=== PATIENT | male | born 1945 | race Caucasian/White ===

== ENCOUNTER 2018-08-06 08:11 | Observation (INO) | payer MEDICARE ==
[~2018-08-06] VITALS: Ht 172.7 cm; Wt 80.8 kg
[2018-08-06] MEDS ORDERED: METH4TAB10 (08:32)
[2018-08-06] MEDS ORDERED: PRAV20TA3 (08:32)
[2018-08-06] MEDS ORDERED: ONDA4TAB11 (08:32)
[2018-08-06 08:52] LABS: BASOPHILS % (AUTO) 0 % (0-10); EOSINOPHILS % (AUTO) 0 % (0-10); HEMATOCRIT 50 % (40-54); HEMOGLOBIN 17.3 G/DL (13.3-17.7); LYMPHOCYTES # (AUTO) 0.5 X 10^3 (1.0-4.0); LYMPHOCYTES % (AUTO) 8 % (12-44); MEAN CORPUSCULAR HEMOGLOBIN 30 PG (25-34); MEAN CORPUSCULAR HGB CONC 34 G/DL (32-36); MEAN CORPUSCULAR VOLUME 86 FL (80-99); MEAN PLATELET VOLUME 10.5 FL (7.4-10.4); MONOCYTES # (AUTO) 0.8 X 10^3 (0.0-1.0); MONOCYTES % (AUTO) 12 % (0-12); NEUTROPHILS # (AUTO) 5.4 X 10^3 (1.8-7.8); NEUTROPHILS % (AUTO) 80 % (42-75); PLATELET COUNT 177 10^3/uL (130-400); RED CELL DISTRIBUTION WIDTH 14.6 % (10.0-14.5); WHITE BLOOD COUNT 6.7 10^3/uL (4.3-11.0)
[2018-08-06 09:08] LABS: PROTHROMBIN TIME PATIENT 13.1 SEC (12.2-14.7)
[2018-08-06] MEDS ORDERED: NS IV 1000 ML 1,000 ML IV ONE ×2 (09:08→09:25)
[2018-08-06] MEDS ORDERED: ONDANSETRON 4 MG/2 ML (SDV) Z0FRAN IVP ONE (09:15)
[2018-08-06 09:23] LABS: ALBUMIN 4.2 GM/DL (3.2-4.5); CALCIUM 9.5 MG/DL (8.5-10.1); CREATININE SERUM 1.48 MG/DL (0.60-1.30); MAGNESIUM 2.3 MG/DL (1.8-2.4); POTASSIUM 4.1 MMOL/L (3.6-5.0); TOTAL PROTEIN 7.9 GM/DL (6.4-8.2)
--- NOTE | 2018-08-06 09:48 | Diagnostic Imaging Report ---
PROCEDURE: CT abdomen and pelvis without contrast. TECHNIQUE: Multiple contiguous axial images were obtained through the abdomen and pelvis without the use of intravenous contrast. INDICATION: Vomiting and diarrhea for 3 days The liver is normal. There are several gallstones in the dependent portion of the gallbladder. No gallbladder wall edema is evident. The bile ducts are not dilated. The spleen, pancreas and adrenals are normal. The kidneys, ureters and bladder are normal. There are multiple air and fluid-filled loops of dilated small bowel. The distal small bowel is not dilated and the changes are consistent with partial small bowel obstruction. An obstructing lesion is not evident at this time. There is some air in a nondistended colon with scattered diverticula present. There is no free intraperitoneal air or fluid. IMPRESSION: Small bowel obstruction. Dictated by: Dictated on workstation # [id number]
--- NOTE | 2018-08-06 10:20 | NUR ---
RESTING IN BED WITH EYES CLOSED. STATES THE ZOFRAN HELPED.
--- NOTE | 2018-08-06 10:33 | ED GI ---
General Chief Complaint: Abdominal/GI Problems Stated Complaint: N/V/D Nursing Triage Note: ARRIVED VIA AMB WITH COMPLAINTS OF N/V/D SINCE . WAS SEEN AT URGENT CARE IN YESTERDAY. GIVEN FLUIDS AND ZOFRAN BUT ZOFRAN IS NOT HELPING. PT STATES HIS DIARRHEA IS BLACK. Sepsis Screen: No Definite Risk Source of Information: Patient Exam Limitations: No Limitations History of Present Illness Date Seen by Provider: Aug 06, 2018 Time Seen by Provider: 08:17 Initial Comments Patient presents to the emergency room with generalized abdominal discomfort, nausea, vomiting, and diarrhea since , August 03. He states his stools have been dark in color, suspicious for blood. He was seen at an urgent care clinic in [place] yesterday and received IV fluids and Zofran. His last dose of Zofran was a 02:00. He does not believe it has been effective. He feels bloated and feels his abdomen is distended. He had a fever early in the illness but has no fever now. He reports a colonoscopy was done about [address] Mendoza in [place]. To the best of his knowledge that study was normal. Allergies and Home Medications Allergies Coded Allergies: No Known Drug Allergies (Unverified , 08/06/18) Patient Home Medication List Home Medication List Reviewed: Yes Review of Systems Review of Systems Constitutional: see HPI EENTM: No Symptoms Reported Respiratory: No Symptoms Reported Cardiovascular: No Symptoms Reported Gastrointestinal: See HPI Genitourinary: No Symptoms Reported Musculoskeletal: no symptoms reported Skin: no symptoms reported Psychiatric/Neurological: No Symptoms Reported Endocrine: No Symptoms Reported Hematologic/Lymphatic: See HPI Past Meaeidu-Freqqm-Esinhw Hx Past Med/Social Hx: Reviewed and Corrections made Patient Social History Alcohol Use: Denies Use Recreational Drug Use: No Smoking Status: Former Smoker Recent Foreign Travel: No Contact w/Someone Who Travel: No Recent Infectious Disease Expo: No Recent Hopitalizations: No Past Medical History Surgeries: Yes (HERNIA) Abdominal, Eye Surgery, Joint Replacement, Orthopedic, Prostatectomy Respiratory: No Cardiac: Yes High Cholesterol Neurological: No Genitourinary: Yes Prostate Problems Gastrointestinal: No Musculoskeletal: No Endocrine: No HEENT: No Cancer: No Psychosocial: No Family Medical History Reviewed and Corrections made Cancer (colon) Physical Exam Vital Signs Vital Signs - First Documented 08/06/18 08:18 Temp 97.8 Pulse 87 Resp 16 B/P (MAP) 159/95 (116) Pulse Ox 95 O2 Delivery Room Air Capillary Refill : Less Than 3 Seconds Height/Weight/BMI Height: 5'8.00" Weight: 175lbs. oz. 79.568132vz; BMI Method:Stated General Appearance: WD/WN, no apparent distress HEENT: PERRL/EOMI, normal ENT inspection, other (Oropharynx somewhat dry) Neck: normal inspection Respiratory: lungs clear, normal breath sounds, no respiratory distress, no accessory muscle use Cardiovascular: regular rate, rhythm, no edema, no murmur Gastrointestinal: normal bowel sounds, soft, distended (Mildly), tenderness ( Generalized) Extremities: normal inspection, no pedal edema Neurologic/Psychiatric: formula room worker II-XII nml as tested, no motor/sensory deficits, alert, normal mood/affect, oriented x 3 Skin: normal color, warm/dry Progress/Results/Core Measures Results/Orders Lab Results Laboratory Tests Test 08/06/18 08:40 Range/Units White Blood Count 6.7 4.3-11.0 10^3/uL Red Blood Count 5.86 H 4.35-5.85 10^6/uL Hemoglobin 17.3 13.3-17.7 G/DL Hematocrit 50 40-54 % Mean Corpuscular Volume 86 80-99 FL Mean Corpuscular Hemoglobin 30 25-34 PG Mean Corpuscular Hemoglobin Concent 34 32-36 G/DL Red Cell Distribution Width 14.6 H 10.0-14.5 % Platelet Count 177 130-400 10^3/uL Mean Platelet Volume 10.5 H 7.4-10.4 FL Neutrophils (%) (Auto) 80 H 42-75 % Lymphocytes (%) (Auto) 8 L 12-44 % Monocytes (%) (Auto) 12 0-12 % Eosinophils (%) (Auto) 0 0-10 % Basophils (%) (Auto) 0 0-10 % Neutrophils # (Auto) 5.4 1.8-7.8 X 10^3 Lymphocytes # (Auto) 0.5 L 1.0-4.0 X 10^3 Monocytes # (Auto) 0.8 0.0-1.0 X 10^3 Eosinophils # (Auto) 0.0 0.0-0.3 10^3/uL Basophils # (Auto) 0.0 0.0-0.1 10^3/uL Prothrombin Time 13.1 12.2-14.7 SEC INR Comment 1.0 0.8-1.4 Activated Partial Thromboplast Time 33 24-35 SEC Sodium Level 131 L 135-145 MMOL/L Potassium Level 4.1 3.6-5.0 MMOL/L Chloride Level 98 98-107 MMOL/L Carbon Dioxide Level 18 L 21-32 MMOL/L Anion Gap 15 H 5-14 MMOL/L Blood Urea Nitrogen 43 H 7-18 MG/DL Creatinine 1.48 H 0.60-1.30 MG/DL Estimat Glomerular Filtration Rate 47 BUN/Creatinine Ratio 29 Glucose Level 126 H 70-105 MG/DL Calcium Level 9.5 8.5-10.1 MG/DL Corrected Calcium 9.3 8.5-10.1 MG/DL Magnesium Level 2.3 1.8-2.4 MG/DL Total Bilirubin 1.0 0.1-1.0 MG/DL Aspartate Amino Transf (AST/SGOT) 106 H 5-34 U/L Alanine Aminotransferase (ALT/SGPT) 126 H 0-55 U/L Alkaline Phosphatase 75 40-136 U/L C-Reactive Protein High Sensitivity 14.28 H 0.00-0.50 MG/DL Total Protein 7.9 6.4-8.2 GM/DL Albumin 4.2 3.2-4.5 GM/DL Lipase 11 8-78 U/L Micro Results Microbiology 08/06/18 Fecal Leukocyte Stain - Final, Resulted 08/06/18 C. difficile GDH Antigen & Toxins - Final, Resulted 08/06/18 Stool Culture, Resulted Pending My Orders Orders - BETTY SNELL MD Cbc With Automated Diff (08/06/18 08:17) Comprehensive Metabolic Panel (08/06/18 08:17) Magnesium (08/06/18 08:17) Saline Lock/Iv-Start (08/06/18 08:17) Protime With Inr (08/06/18 08:47) Partial Thromboplastin Time (08/06/18 08:47) Fecal Occult Bedside (08/06/18 08:47) C Difficile Ag + Toxin A/B. (08/06/18 08:52) Stool Culture (08/06/18 08:52) Fecal Wbc (08/06/18 08:52) Lipase (08/06/18 09:07) Ondansetron Injection (Zofran Injectio (08/06/18 09:15) Ns Iv 1000 Ml (Sodium Chloride 0.9%) (08/06/18 09:08) Ns Iv 1000 Ml (Sodium Chloride 0.9%) (08/06/18 09:25) Ct Abdomen/Pelvis Wo (08/06/18 09:28) Hs C Reactive Protein (08/06/18 09:28) Medications Given in ED Vital Signs/I&O 08/06/18 08:18 Temp 97.8 Pulse 87 Resp 16 B/P (MAP) 159/95 (116) Pulse Ox 95 O2 Delivery Room Air Blood Pressure Mean: 116 Fecal Occult: Positive Progress Progress Note : Progress Note Patient was found to have renal insufficiency with elevated creatinine and a BUN. 2 L of IV normal saline were ordered to start in the ER. CT scan was obtained and demonstrated at least a partial small bowel obstruction. Patient did have a stool that was dark red in color and smell of blood. Tested Hemoccult positive. Specimen was sent to lab for cultures and C. difficile testing. Patient's pain was fairly mild throughout his ER stay. Zofran was given for nausea. Case was discussed with Dr. Lima who is agreeable consult and to admission for observation. Patient was admitted to Dr. Sanchez. Diagnostic Imaging Diagonstic Imaging: CT Plain Films/CT/US/NM/MRI: abdomen, pelvis Comments CT abdomen and pelvis viewed by me and report reviewed. See report below: NAME: RADHA MELLO [facility] REC#: [id number] PT STATUS: REG ER : 1945 PHYSICIAN: BETTY SNELL MD ADMIT DATE: 08/06/18/ER Signed Date of Exam:08/06/18 CT ABDOMEN/PELVIS WO PROCEDURE: CT abdomen and pelvis without contrast. TECHNIQUE: Multiple contiguous axial images were obtained through the abdomen and pelvis without the use of intravenous contrast. INDICATION: Vomiting and diarrhea for 3 days The liver is normal. There are several gallstones in the dependent portion of the gallbladder. No gallbladder wall edema is evident. The bile ducts are not dilated. The spleen, pancreas and adrenals are normal. The kidneys, ureters and bladder are normal. There are multiple air and fluid-filled loops of dilated small bowel. The distal small bowel is not dilated and the changes are consistent with partial small bowel obstruction. An obstructing lesion is not evident at this time. There is some air in a nondistended colon with scattered diverticula present. There is no free intraperitoneal air or fluid. IMPRESSION: Small bowel obstruction. Dictated by: Dictated on workstation # [id number] Dict: 08/06/18 0944 Trans: 08/06/1858 [facility] [id number] Interpreted by: MILVIA VILLEGAS MD Electronically signed by: MILVIA VILLEGAS MD 08/06/18 0958 Departure Communication (Admissions) Time/Spoke to Admitting Phy: 10:40 Dr. Sanchez Time/Spoke to Consulting Phy: 10:35 Dr. Lima Impression Primary Impression: Small bowel obstruction Additional Impressions: Rectal bleeding Renal insufficiency Generalized abdominal pain Nausea vomiting and diarrhea Disposition: ADMITTED INPATIENT Condition: Improved Admissions Decision to Admit Reason: Admit from ER (General) Decision to Admit/Date: Aug 06, 2018 Time/Decision to Admit Time: 10:30 Departure-Patient Inst. Referrals: MARIA C GUIDRY MD (PCP) Primary Care Physician BETTY SNELL MD Aug 06, 2018 10:33
--- NOTE | 2018-08-06 11:40 | NUR ---
RADHA MELLO admitted to room 433-1, with an admitting diagnosis of SMALL BOWEL OBSTRUCTION, RENAL INSUFF AND RECTAL [id number], on 08/06/18 from ED via BED, accompanied by STAFF. RADHA MELLO introduced to surroundings, call light, bed controls, phone, TV, temperature control, lights, meal times, smoking policy, visitor policy, side rail policy, bathrooms and showers. Patient Rights given to patient in the handbook. RADHA MELLO verbalizes understanding that [facility] is not responsible for the loss or damage to any personal effects or valuables that are kept in the patients posession during their hospitalization. The following Patient Care Plans were discussed with the PATIENT: Discharge Planning,KNOWLEDGE, PAIN AND ELIMINATION. RADHA MELLO verbalizes understanding of Interdisciplinary Patient Education.
--- NOTE | 2018-08-06 12:09 | History & Physical-Hospitalist ---
History of Present Illness HPI/Chief Complaint Pt is a 73yoCM with a PMH of HLD who presented to the ER due to abdominal pain, nausea, vomiting, and diarrhea. He ate at the [employer] in [place] on 08/03 and then developed nausea, vomiting, and diarrhea. He was seen yesterday at an urgent care in [place] and prescribed Zofran and sent home. Despite that he was still havingt vomiting and unable to keep anything down. Yesterday he started to have darker color emesis and blood in his stool prompting him to seek evaluation in the ER today. CT Abd was done which revealed a partial small bowel obstruction and labs revealed an ZO. He was admitted for further management and surgical consultation. He states he is still having upper epigastric abdominal pain. Source: patient Exam Limitations: no limitations Date Seen 08/06/18 Time Seen by a Provider: 12:04 Attending Physician Annie Sanchez MD PCP Ori Lee MD Referring Physician Date of Admission Aug 06, 2018 at 10:47 Home Medications & Allergies Home Medications Reviewed patient Home Medication Reconciliation performed by pharmacy medication reconciliations electrostatic powder coating technician and/or nursing. Patients Allergies have been reviewed. Allergies Allergies Coded Allergies No Known Drug Allergies (Unverified08/06/18) Past Ekaiqkp-Vgzpqw-Xeykll Hx Past Med/Social Hx: Reviewed Nursing Past Med/Soc Hx Patient Social History Alcohol Use: Denies Use Recreational Drug Use: No Smoking Status: Former Smoker Recent Foreign Travel: No Contact w/other who traveled: No Recent Hopitalizations: No Recent Infectious Disease Expo: No Past Medical History Surgeries: Abdominal (hernia repair), Eye Surgery, Orthopedic Cardiac: High Cholesterol Genitourinary: Prostate Problems Family History Reviewed Nursing Family Hx No Pertinent Family Hx Review of Systems Constitutional: No chills, No fever EENTM: no symptoms reported Respiratory: no symptoms reported Cardiovascular: No chest pain Gastrointestinal: see HPI, abdominal pain, diarrhea, hematemesis, loss of appetite, nausea, vomiting Genitourinary: no symptoms reported Musculoskeletal: no symptoms reported Skin: no symptoms reported Psychiatric/Neurological: No Symptoms Reported Physical Exam Physical Exam Vital Signs Vital Signs - First Documented 08/06/18 08:18 Temp 97.8 Pulse 87 Resp 16 B/P (MAP) 159/95 (116) Pulse Ox 95 O2 Delivery Room Air Capillary Refill : Less Than 3 Seconds Height, Weight, BMI Height: 5'8.00" Weight: 175lbs. oz. 79.966923ek; BMI Method:Stated General Appearance: No Apparent Distress, WD/WN HEENT: PERRL/EOMI; No Scleral Icterus (L), No Scleral Icterus (R) Respiratory: Lungs Clear, No Accessory Muscle Use, No Respiratory Distress Cardiovascular: Regular Rate, Rhythm, No JVD, No Murmur Gastrointestinal: Normal Bowel Sounds, Non Tender, Soft Extremity: No Calf Tenderness, No Pedal Edema Neurologic/Psychiatric: Alert, Oriented x3, No Motor/Sensory Deficits, Normal Mood/Affect Skin: Normal Color, Warm/Dry Results Results/Procedures Labs Laboratory Tests 08/06/18 08:40 Patient resulted labs reviewed. Imaging: Reviewed Imaging Report Imaging Date of Exam: 08/06/18 CT ABDOMEN/PELVIS WO PROCEDURE: CT abdomen and pelvis without contrast. TECHNIQUE: Multiple contiguous axial images were obtained through the abdomen and pelvis without the use of intravenous contrast. INDICATION: Vomiting and diarrhea for 3 days The liver is normal. There are several gallstones in the dependent portion of the gallbladder. No gallbladder wall edema is evident. The bile ducts are not dilated. The spleen, pancreas and adrenals are normal. The kidneys, ureters and bladder are normal. There are multiple air and fluid-filled loops of dilated small bowel. The distal small bowel is not dilated and the changes are consistent with partial small bowel obstruction. An obstructing lesion is not evident at this time. There is some air in a nondistended colon with scattered diverticula present. There is no free intraperitoneal air or fluid. IMPRESSION: Small bowel obstruction. Assessment/Plan Admission Diagnosis SBO Admission Status: Inpatient Order (span 2 midnights) Reason for Inpatient Admission: Needs surgical consultation, has ZO and needs IVF, will take more than two midnights to stabilize for DC Diagnosis/Problems Diagnosis/Problems (1) Small bowel obstruction Status: Acute Assessment & Plan: NPO Surgery consulted appreciate recs Continue IV pain medications (2) Renal insufficiency Status: Acute Assessment & Plan: Creatinine elevated Continue IVF Avoid nephrotoxic drugs as able Likely due to volume loss (3) Rectal bleeding Status: Acute Assessment & Plan: Stool cultures sent Surgery consulted, appreciate recs Has 3 abx fills in the last year per external fill history C diff ordered (4) Nausea vomiting and diarrhea Status: Acute Assessment & Plan: Zofran and phenergan prn MAX,ANNIE M MD Aug 06, 2018 12:09
[2018-08-06] MEDS: D5 1/2 NS W/KCL 20 MEQ/L 1,000 ML IV SCH ×2 (12:42→21:27)
[2018-08-06] MEDS: FAMOTIDINE 20MG/2ML IV (PEPCID) IVP SCH ×2 (12:42→22:43)
[2018-08-06] MEDS ORDERED: fentaNYL INJECTION 100 MCG/2 ML AMP IVP PRN (12:45)
[2018-08-06] MEDS ORDERED: ONDANSETRON 4 MG/2 ML (SDV) Z0FRAN IVP PRN (12:45)
[2018-08-06 12:57] VITALS: BP 113/87
--- NOTE | 2018-08-06 13:12 | CONSULTATION REPORT ---
DATE OF SERVICE: 08/06/2018 ADMITTING PRIMARY CARE PHYSICIAN: Dr. Lee ADMITTING PHYSICIAN: Dr. Sanchez. The patient is a 73-year-old male admitted for persistent nausea, vomiting and dehydration. He states that 3 days ago he developed nausea and vomiting and this was followed by diarrhea. He reported that the vomiting was dark in coloration as well as bilious. He states that his diarrhea was also dark in color. He does not report any red blood per rectum. He states that he has not had any episodes like this before in the past. He also does not report any flu-like symptoms or any sick contacts. Laboratory work was normal; however, he appears to be significantly dehydrated. His hemoglobin is 17.3 with hematocrit of 50. WBC 6.7, BUN 43, creatinine 1.49. Upon examination of his abdomen, it is slightly distended. However, there is no pain or peritoneal signs as well as no hernias. PAST MEDICAL HISTORY: Hypercholesterolemia. PAST SURGICAL HISTORY: Left total hip arthroplasty, left inguinal hernia repair. Laparoscopic cholecystectomy. ALLERGIES: No known drug allergies. MEDICATIONS: Pravastatin daily. SOCIAL HISTORY: Previous smoker, negative alcohol. FAMILY HISTORY: Noncontributory. VITAL SIGNS: Temperature 97.8, blood pressure 159/95, pulse 87, respirations 16, pulse ox 95% on room air. REVIEW OF SYSTEMS: Well-nourished male, currently in no acute distress. He is not experiencing any shortness of breath or difficulty breathing. No chest pain, palpitations, or diaphoresis. Intermittent episodes of nausea, vomiting of bilious as well as dark material with associated diarrhea and mild crampy abdominal pain. He reports the stools have been dark and were heme positive; however, negative for red blood per rectum. No fever, chills. No recent inadvertent weight loss. PHYSICAL EXAMINATION: CHEST: Clear. Good breath sounds bilaterally. HEART: Regular, no murmurs. EXTREMITIES: No lower extremity edema, negative Homans sign. HEENT: No scleral icterus. NECK: No cervical lymphadenopathy. ABDOMEN: Soft, slightly distended. There is mild discomfort in the mid abdominal region; however, no hernias or peritoneal signs. SKIN: Warm, dry. ASSESSMENT AND PLAN: A 73-year-old male with gastroenteritis. At this time, we feel that this is most likely a viral etiology. Based on the characteristics of his emesis as well as stools, there is a potential for acid secretion, hyperacid secretion gastritis and if he continues to have these symptoms, he may benefit from an EGD. He did have a colonoscopy approximately a year and a half ago and states that this was normal. For now, he will be placed on famotidine 20 mg IV b.i.d. Job ID: [id number] DocumentID: [id number] Dictated Date: 08/06/2018 12:37:22 [place] Supervisor Date: 08/06/2018 13:11:53 Dictated By: BENJIE DE LEÓN MD [facility]
[2018-08-06] MEDS ORDERED: ACETAMINOPHEN 500 MG TAB (TYLENOL) PO PRN (15:00)
[2018-08-06] MEDS ORDERED: BENZONATATE 100 MG (TESSALON) CAPSULE PO PRN (15:00)
[2018-08-06] MEDS ORDERED: ANTACID SUSP 30 ML UDC (MYLANTA) PO PRN (15:00)
[2018-08-06] MEDS ORDERED: MILK OF MAGNESIA 400 MG/5 ML 30 ML UDC PO PRN (15:00)
[2018-08-06] MEDS ORDERED: MELATONIN 3 MG TABLET PO PRN (15:00)
[2018-08-06] MEDS ORDERED: PROMETHAZINE INJ 25 MG/ML (PHENERGAN) AMP IVP PRN (15:15)
--- NOTE | 2018-08-06 15:36 | NUR ---
WALKING IN HALLS WITH , SHORTY WELL, VOIDING DARK SHAMIR URINE, LIQUID BROWN STOOL, IV SITE WITHOUT REDNESS OR SWELLING
[2018-08-06 17:12] VITALS: BP 136/75
[2018-08-06 19:56] VITALS: BP 125/73
[2018-08-07] VITALS: BP 120/70
[2018-08-07 04:00] VITALS: BP 104/63
[2018-08-07] MEDS: D5 1/2 NS W/KCL 20 MEQ/L 1,000 ML IV SCH (05:50)
[2018-08-07] MEDS ORDERED: FLU QUADRIvalent (5+ YOA) 2018-2019 (AFLURIA) 0.5 ML IM ONE (07:45)
[2018-08-07 08:00] VITALS: BP 133/76
[2018-08-07] MEDS: FAMOTIDINE 20MG/2ML IV (PEPCID) IVP SCH (08:54)
--- NOTE | 2018-08-07 09:55 | Discharge Summary-Hospitalist ---
HARDEEP DE LEON DO 08/07/18 0955: Diagnosis/Chief Complaint Date of Admission Aug 06, 2018 at 10:47 Date of Discharge Discharge Date: Aug 07, 2018 Admission Diagnosis SBO Discharge Diagnosis (1) Small bowel obstruction Status: Acute Assessment & Plan: NPO Surgery consulted geraldine hernandez Continue IV pain medications (2) Renal insufficiency Status: Acute Assessment & Plan: Creatinine elevated Continue IVF Avoid nephrotoxic drugs as able Likely due to volume loss (3) Rectal bleeding Status: Acute Assessment & Plan: Stool cultures sent Surgery consulted, geraldine hernandez Has 3 abx fills in the last year per external fill history C diff ordered (4) Nausea vomiting and diarrhea Status: Acute Assessment & Plan: Zofran and phenergan prn Discharge Summary Discharge Physical Exam Allergies: Coded Allergies: No Known Drug Allergies (Unverified , 08/06/18) Vitals & I&Os Vital Signs Date Time Temp Pulse Resp B/P (MAP) Pulse Ox O2 Delivery O2 Flow Rate FiO2 08/07/18 13:22 54 16 133/76 95 Room Air 08/07/18 08:00 96.1 General Appearance: No Apparent Distress, WD/WN HEENT: PERRL/EOMI; No Scleral Icterus (L), No Scleral Icterus (R) Respiratory: Lungs Clear, No Accessory Muscle Use, No Respiratory Distress Cardiovascular: Regular Rate, Rhythm, No JVD, No Murmur Gastrointestinal: Normal Bowel Sounds, Non Tender, Soft Extremity: No Calf Tenderness, No Pedal Edema Skin: Normal Color, Warm/Dry Neurologic/Psychiatric: Alert, Oriented x3, No Motor/Sensory Deficits, Normal Mood/Affect Hospital Course Was the Problem List Reviewed?: Yes He did have a small BM today Had endoscopy, EGD and [place] [address] Dr. Lima saw him yesterday and will see him today and likely DC Viral enteritis is what is the diagnosis Will follow up closely with his new PCP Dr. Lee Labs (last 24 hrs) Microbiology 08/06/18 Fecal Leukocyte Stain - Final, Resulted 08/06/18 C. difficile GDH Antigen & Toxins - Final, Resulted 08/06/18 Stool Culture - Preliminary, Resulted Culture In Progress Presumptive Usual [place] Patient resulted labs reviewed. Imaging: Reviewed Imaging Report Discussion & Recommendations Discharge Planning: <30 minutes discharge planning Discharge Home Medications: Active Scripts Active Reported Pravastatin Sodium 20 Mg Tablet Ondansetron Odt (Ondansetron) 4 Mg Tab.rapdis Instructions to patient/family Please see electronic discharge instructions given to patient. Clinical Quality Measures DVT/VTE Risk/Contraindication: Risk Factor Score Per Nursin RFS Level Per Nursing on Admit: 2=Moderate REDD GARCIA MED STUDENT 08/07/18 1056: Diagnosis/Chief Complaint Admission Diagnosis SBO N/V/D Discharge Summary Discharge Physical Exam Allergies: Coded Allergies: No Known Drug Allergies (Unverified , 08/06/18) General Appearance: No Apparent Distress, WD/WN HEENT: PERRL/EOMI, Normal ENT Inspection Respiratory: Lungs Clear, No Accessory Muscle Use, No Respiratory Distress Cardiovascular: Regular Rate, Rhythm, No JVD, No Murmur Gastrointestinal: Normal Bowel Sounds, No Organomegaly, Non Tender, Distended ( mild) Extremity: No Calf Tenderness, No Pedal Edema Skin: Normal Color, Warm/Dry Neurologic/Psychiatric: Alert, Oriented x3, No Motor/Sensory Deficits, Normal Mood/Affect Hospital Course Patient was admitted through the ER on 08/06 for intractable N/V/D and evidence per CT of SBO. He described his stools at that time as black and very loose. He was placed on IVF, IV pain medication, and made NPO, and surgery was consulted. As of this morning his N/V is under control with anti-emetics, he was able to eat clear liquids last night and this morning without pain or nausea. His diarrhea is improved as well (decreased in quantity and no longer black in color ). Dr. Lima with surgery documents that this is likely a viral gastroenteritis resolving with current treatment plan. Patient feels well today and is ready for discharge to home after he is seen by Dr. Lima. Follow up with primary care physician is recommended. HARDEEP DE LEON DO Aug 07, 2018 09:55 REDD GARCIA MED STUDENT Aug 07, 2018 10:56
--- NOTE | 2018-08-07 13:19 | NUR ---
1235 DR DE LEÓN CALLED AND IS OK WITH DISCHARGE.
[2018-08-07 13:22] VITALS: BP 133/76
== END 2018-08-07 13:10 | disposition home or self-care (01) ==
LOC: ER 08:13 → 4TH 10:47
PROVIDERS: ADMIT Family Medicine; ATTEND Family Medicine
DX: K56.609 Unspecified intestinal obstruction, unspecified as to partial versus complete obstruction (principal); K52.9 Noninfective gastroenteritis and colitis, unspecified; N17.9 Acute kidney failure, unspecified; K62.5 Hemorrhage of anus and rectum; E78.5 Hyperlipidemia, unspecified; Z87.891 Personal history of nicotine dependence
CPT/HCPCS: 36415; 74176; 80053; 83690; 83735; 85025; 85610; 85730; 86141; 87015; 87045; 87046; 87324; 87449; 87899; 89055; G0378

== ENCOUNTER → 2020-12-11 | Outpatient (CLI) | payer SELFPAY ==
[~2020-12-11] MED LIST: METH4TAB10; ONDA4TAB11; PRAV20TA3
--- NOTE | 2020-12-12 08:40 | Diagnostic Imaging Report ---
CLINICAL HISTORY: Hyperlipidemia. Family history of heart disease. COMPARISON: None. TECHNIQUE: Non-contrast enhanced EKG-gated axial images were obtained with a coned down field of view to assess for coronary calcium. Post processing of the images was performed on an independent work station. CTDI volume 5.11 mGy DLP 111 mGy*cm FINDINGS: Important Information About Your Scan: The following information is based on an analysis of the coronary arteries only. Calcium deposits do not correspond directly to the percentage of narrowing of the arteries. They do correlated directly to the amount of coronary plaque, and to the risk of future coronary disease. The calcium deposits usually begin to form years before any symptoms develop. Early detection and modification of risk factors, such as smoking and cholesterol intake, can slow the progress of coronary artery disease. A low score suggests a low likelihood of coronary artery disease, but does not exclude the possibility of significant coronary artery narrowing. The results should be discussed with your physician, taking into account other risk factors such as age, gender, family history, diabetes, smoking or high cholesterol levels. Should you ever experience chest pain, difficulty breathing, discomfort radiating into your neck or arm, or discomfort combined with lightheadedness, sweating, fainting or nausea, you should seek prompt medical attention. Calcium Score: Agatston units 0 - 0: No identifiable atherosclerotic plaque 1 - 10: Minimal plaque burden 11 - 100: Mild plaque burden 101 - 400: Moderate plaque burden Greater than 401: Extensive plaque burden. Score Summary: Your total calcium score is 941.5 Agatston units. Ranking Guide: Your score of 941.5 Agatston units places you in the 75th-90th percentile rank. That means out of a group of people with same gender and similar age as yourself 10-25% will have a higher calcium score than you, as reported in literature. CORONARY AJ-130 Left Main artery (LMA) 0 Left Anterior Descending (LAD) 538.5 Left Circumflex (LCX) 190.7 Right Coronary Artery (RCA) 212.3 Total 941.5 Agatston units The visualized portions of the lungs demonstrate no focal nodules or masses. There are no pleural or pericardial effusions. The visualized osseous structures are age appropriate. A small hiatal hernia is present. IMPRESSION: 1. CT coronary calcium score is 941.5 Agatston units, consistent with the 75th to the 90th percentile rank. This corresponds with extensive plaque burden within the coronary arteries. 2. Adoption and maintenance of a healthy lifestyle is recommended for all people. This includes regular appropriate exercise and observance of a proper diet, to ensure balanced nutrition and weight control. 3. Tobacco use should be avoided. 4. Hypercholesterolemia has been linked to coronary atherosclerosis. Ensure strict adherence to NCEP (National Cholesterol Education Panel) cholesterol-lowering guidelines. For primary prevention, these include a target goal for total cholesterol of less than 200 mg/dL, HDL cholesterol of greater than 40 mg/dL, triglycerides of less than 200 mg/dL and LDL cholesterol of less than 100 mg/dL Secondary prevention involves more stringent goals. However, please note that these are general recommendations and as with all such matters, the personal family physician should be consulted regarding recommendations appropriate for the individual. Recommend evaluation and treatment for all the other cardiovascular risk factors. Dictated by: Dictated on workstation # [id number]
== END ==
LOC: RAD FS 08:47
PROVIDERS: ATTEND Family Medicine
DX: E78.5 Hyperlipidemia, unspecified (principal); Z82.49 Family history of ischemic heart disease and other diseases of the circulatory system
CPT/HCPCS: 75571

== ENCOUNTER 2022-04-03 11:57 | Emergency (ER) | payer MEDICARE ==
[~2022-04-03] VITALS: Ht 172.7 cm; Wt 79.4 kg
[2022-04-03 12:05] VITALS: BP 161/89
--- NOTE | 2022-04-03 12:10 | ED Upper Extremity ---
General Chief Complaint: Laceration Stated Complaint: LT MIDDLE FINGER LAC History of Present Illness Date Seen by Provider: Apr 03, 2022 Time Seen by Provider: 12:10 Initial Comments 76-year-old male is here with complaints of left middle finger tip laceration through the nail tip due to a utility knife injury while he was cutting leather. Denies sensory loss patient is able to move his fingers without any issues or complaints. Allergies and Home Medications Allergies Coded Allergies: No Known Drug Allergies (Unverified , 08/06/18) Patient Home Medication List Home Medication List Reviewed: Yes Ondansetron (Ondansetron Odt) 4 Mg Tab.rapdis, (Reported) Entered as Reported by: ALEX BOWERS on 08/06/18 0832 Pravastatin Sodium (Pravastatin Sodium) 20 Mg Tablet, (Reported) Entered as Reported by: ALEX BOWERS on 08/06/18 0832 Review of Systems Constitutional: no symptoms reported EENTM: no symptoms reported Respiratory: no symptoms reported Cardiovascular: no symptoms reported Gastrointestinal: no symptoms reported Genitourinary: no symptoms reported Musculoskeletal: no symptoms reported Skin: see HPI, lesions Psychiatric/Neurological: No Symptoms Reported Past Qwugowh-Qisgdk-Pecnow Hx Seasonal Allergies Seasonal Allergies: No Past Medical History Surgeries: Yes (HERNIA, left hip) Abdominal, Eye Surgery, Joint Replacement, Orthopedic, Prostatectomy Respiratory: No Currently Using CPAP: No Currently Using BIPAP: No Cardiac: Yes High Cholesterol Neurological: No Genitourinary: Yes Prostate Problems Gastrointestinal: No Gastroesophageal Reflux Musculoskeletal: No Arthritis Endocrine: No HEENT: No Loss of Vision: Denies Hearing Impairment: Denies Cancer: No Psychosocial: No Integumentary: No Blood Disorders: No Family Medical History Cardiovascular disease 19 FATHER Neoplasm G8 BROTHER Cancer Physical Exam Vital Signs Vital Signs - First Documented 04/03/22 12:05 Temp 36.0 Pulse 71 Resp 18 B/P (MAP) 161/89 (113) Pulse Ox 96 O2 Delivery Room Air Capillary Refill : Height, Weight, BMI Height: 5'8.00" Weight: 178lbs. 2.0oz. 80.738982ye; 27.1 BMI Method:Stated General Appearance: WD/WN, no apparent distress HEENT: PERRL/EOMI Neck: full range of motion Hand: normal ROM, Left, laceration (curved laceratiobn on tipof finger including tip of nail directed towrd radial side of dorsal finger, 1.25 cm long. NV bundle intact. ROM unrestricted) Procedures/Interventions Wound Location: Upper Extremities Other Wound Location left middle fingertip Wound's Depth, Shape: superficial, sub Q Wound Explored: no foreign body removed Irrigated w/ Saline (ccs): 20 Betadine Prep?: No Anesthesia: 1% Lidocaine Volume Anesthetic (ccs): 7 Suture: Ethlion Suture Size: 4-0, 5-0 Number of Sutures: 3 Sterile Dressing Applied?: Yes Progress/Results/Core Measures Results/Orders My Orders Orders - LINSEY ROWAN MD Lidocaine 1% Inj 20 Ml (Xylocaine 1% Inj (04/03/22 12:15) Lidocaine 2% Bolus Syringe (Xylocaine Justo (04/03/22 12:15) Lidocaine 2% Pf 5 Ml (Xylocaine 2% Pf) (04/03/22 12:16) Lidocaine 2% Pf 5 Ml (Xylocaine 2% Pf) (04/03/22 12:17) Lidocaine 2% Pf 5 Ml (Xylocaine 2% Pf) (04/03/22 12:45) Vital Signs/I&O 04/03/22 12:05 Temp 36.0 Pulse 71 Resp 18 B/P (MAP) 161/89 (113) Pulse Ox 96 O2 Delivery Room Air Progress Progress Note : Progress Note 1. LEFT MIDDLE FINGERTIP LACERATION REPAIR INCLUDING NAIL: - TDAP given in ER - 3 interrupted sutures placed. Wound instructions given, Return for removal in 7 days - prescription for Keflex 500mg bid for 5 days, prophylactic, and 4 tabs of Percocet for severe pain, for mild to moderate pain use Ibuprofen. Do not drive after taking Percocet Departure Impression Primary Impression: Laceration of left middle finger without foreign body with damage to nail Qualified Codes: S61.313A - Laceration without foreign body of left middle finger with damage to nail, initial encounter Disposition: 01 HOME, SELF-CARE Condition: Improved Departure-Patient Inst. Referrals: SELFMARIA C MD (PCP/Family) Primary Care Physician Patient Instructions: Laceration Repair With Stitches (DC), Wound Care (DC) Add. Discharge Instructions: - prescription for Keflex 500mg bid for 5 days, prophylactic, and 4 tabs of Percocet for severe pain, for mild to moderate pain use Ibuprofen. Do not drive after taking Percocet All discharge instructions reviewed with patient and/or family. Voiced understanding. Scripts Oxycodone HCl/Acetaminophen (Percocet 5-325 mg Tablet) 1 Each Tablet 1 TAB PO Q6H for PAIN-MODERATE MDD 6 TABS for 2 Days, #4 TAB Prov: LINSEY ROWAN MD 04/03/22 Cephalexin (Cephalexin) 500 Mg Tablet 500 MG PO BID for 5 Days, #10 TAB Prov: LINSEY ROWAN MD 04/03/22 LINSEY ROWAN MD Apr 03, 2022 12:10
[2022-04-03] MEDS ORDERED: LIDOCAINE BOLUS 100 MG/5 ML (IMS) SYR ONE (12:15)
[2022-04-03] MEDS ORDERED: LIDOCAINE 1% INJ 20 ML VIAL INJ ONE (12:15)
[2022-04-03] MEDS ORDERED: LIDOCAINE PF 2% 5 ML (XYLOCAINE) VIAL ONE ×2 (12:16→12:17)
[2022-04-03] MEDS ORDERED: LIDOCAINE PF 2% 5 ML (XYLOCAINE) VIAL INJ ONE (12:45)
[2022-04-03] MEDS ORDERED: CEPH500T PO (12:53)
[2022-04-03] MEDS ORDERED: OXYC1TAB87 PO (12:53)
[2022-04-03] MEDS ORDERED: TETANUS,DIPTH,PERTUSS P/F (BOOSTRIX) 0.5 ML VIAL IM ONE (13:00)
== END 2022-04-03 13:05 | disposition home or self-care (01) ==
LOC: EDUNIT# 11:57 → ER FS 11:59
DX: S61.313A Laceration without foreign body of left middle finger with damage to nail, initial encounter (principal); Z23 Encounter for immunization; W26.0XXA Contact with knife, initial encounter
CPT/HCPCS: 12001; 90715

== ENCOUNTER 2022-04-09 08:11 | Emergency (ER) | payer MEDICARE ==
[~2022-04-09 08:11] MED LIST changes: +CEPH500T PO; +OXYC1TAB87 PO
[2022-04-09 08:15] VITALS: BP 144/62
== END 2022-04-09 08:25 | disposition home or self-care (01) ==
LOC: EDUNIT# 08:11 → ER FS 08:13
DX: S61.213D Laceration without foreign body of left middle finger without damage to nail, subsequent encounter (principal); X58.XXXD Exposure to other specified factors, subsequent encounter